=== PATIENT | female | born 1950 | race Caucasian/White ===

== ENCOUNTER 2018-03-04 02:40 | Inpatient (IN) | payer MEDICARE ==
[~2018-03-04] VITALS: Ht 149.8 cm; Wt 99.0 kg
--- NOTE | ~2018-03-04 | PR ---
[place], [place] PROGRESS NOTE NAME: LALO FRANKLIN UNIT #: [id number] ROOM: 315 DOCTOR: IZAIAH SEO MD BIRTHDATE: [birth year] DOS: 03/09/2018 CHIEF COMPLAINT: "Do you think I will be able to go home tomorrow." SUMMARY OF THE VISIT: The patient was interviewed in her room. She was resting quietly in bed. She reported to me that she slept well, got up, had breakfast, ate most if not all of it and then was lying down just to get ready to start today. Nurses report, she was less somatic yesterday and seemed to engage more readily in normal activities and seemed to be brighter and more interactive. They also note that she did not seem to exhibit any medication side effects, so these seemed to have dissipated completely. MENTAL STATUS: She is alert and oriented. Mood does seem to be strongly trending towards euthymia. Affect is more appropriate. There is no linda or hypomania. There are no overt auditory or visual hallucinations. No delusions, no paranoia. Short term memory has mild gaps, otherwise she is intact. PLAN: I will go ahead and prepare her for discharge to [facility]. Her prescriptions have already been e-scribed to [facility]. We will get ready for transport to [place] then on Saturday. IZAIAH SEO MD CM:PNTRANS 1 7 IZAIAH SEO MD 03/09/18916 interface
--- NOTE | ~2018-03-04 | WRIGHTHP ---
[place], [place] PATIENT HISTORY AND PHYSICAL EXAM NAME: LALO FRANKLIN UNIT #: [id number] ROOM: 315 DOCTOR: IZAIAH SEO MD BIRTHDATE: [birth year] DOS: 03/04/2018 CHIEF COMPLAINT: "I have just been depressed." HISTORY OF PRESENT ILLNESS: This is a 67-year-old white female who resides at the [facility]. The patient apparently has been voicing significant suicidal thoughts with a plan. The patient had only been residing at the [facility] for approximately 1 month and has found herself not sleeping well at night, not eating well, not attending to her ADLs. She was seen by the facility psychologist, who felt that she needed to be watched carefully. Eventually, the [facility] reached out so that the patient could be admitted to the psychiatric unit for further evaluation and for treatment. PAST MEDICAL HISTORY: Remarkable for multiple drug allergies including PENICILLIN, MACROLIDE and SEVERAL OTHERS. The patient herself reports a previous psychiatric admission at [facility]. MENTAL STATUS EXAMINATION: This morning, she is alert and oriented to person, possibly place, but not time. Mood does seem to be very depressed and despondent. She endorses multiple neurovegetative symptoms. There is no symptom suggestive of hypomania or linda. There are no overt auditory or visual hallucinations at this point. Memory has gaps for short term events especially. DIAGNOSIS: Major depression, recurrent, severe. PLAN: I have already started her on Remeron 15 mg at bedtime along with Abilify 15 mg at bedtime. Because she scored a 14 of 30 on her mini mental status exam, I will go ahead and start her on Exelon patch 4.6 mg a day. Routine laboratory examinations have been drawn and I am awaiting the results. Meanwhile, we will continue to engage her in individual and marin milieu activity as we further assess her lethality, and then determine the least restrictive environment for discharge. IZAIAH SEO MD CM:HISPHYS:PATIENT HISTORY AND PHYSICAL EXAMINATION [id number] IZAIAH SEO MD 03/04/18 1012 interface
--- NOTE | ~2018-03-04 | DS ---
[place], [place] DISCHARGE SUMMARY NAME: LALO FRANKLIN UNIT #: [id number] ROOM: 315 DOCTOR: IZAIAH SEO MD BIRTHDATE: [birth year] DOS: 03/10/2018 CHIEF COMPLAINT: "I have been so depressed." HISTORY OF PRESENT ILLNESS: This is a 67-year-old white female who resides at the [facility]. Apparently, the patient had begun voicing suicidal thoughts with a plan. The patient had only been residing at the [facility] for approximately 1 month and pretty much during that entire time has found herself with poor sleep with difficulty falling asleep, sleep continuity disturbance, compensator awakening, poor appetite, anergia, anhedonia, hopeless and helpless feelings. She has also been not attending to her ADLs. She was seen by the facility psychologist who felt that she needed to be watched very carefully. Eventually, the staff there felt that the depression and suicidal thoughts were worsening to the point that she no longer was safe there and required more careful intervention and supervision. She was admitted now to the psychiatric unit to rule out further organic matters, to stabilize on medication and engage in individual and marin milieu activities. PAST MEDICAL HISTORY: Remarkable for allergies to PENICILLIN, MACROLIDE and several other medications and she does admit to having a previous psychiatric admission at [facility]. SUMMARY OF HOSPITAL COURSE: The patient was admitted to the unit where she was started on Remeron 15 mg at bedtime and maintained on Abilify 15 mg at bedtime. She did score a 14 of 30 on her mini mental status examination, so she was started on Exelon patch 4.6 mg a day. This was gradually increased to its maximum dose of 13.3 mg daily with excellent results. Towards the latter part of her stay, this was augmented with Namenda 5 mg a day, dose did not have a chance to be increased much beyond that when the patient really had stabilized and it was felt that she could easily return back to the [facility] where I will follow her. Her mood had by that time improved to the point where she was attending to groups, very interactive. She was attending to her ADLs and she was fully cooperative with all aspects of care. MENTAL STATUS AT DISCHARGE: The patient was alert and oriented to person, place, and very approximate on time. Mood was strongly trending towards euthymia. Affect was much more appropriate. There was no linda or hypomania. There were no overt auditory or visual hallucinations. No delusions, no paranoia. Short-term memory was poor. Long-term and intermediate were fine. FINAL DIAGNOSES: Major depression, recurrent, severe, and Alzheimer's dementia. PLAN: The patient's medications have been E-scribed to the institutional pharmacy on record at the [facility]. I will follow her upon her readmission there. Medically and psychiatrically, she is stable. Her biopsychosocial needs will be met adequately by the staff at the [facility]. [place], [place] DISCHARGE SUMMARY NAME: LALO FRANKLIN UNIT #: [id number] ROOM: [facility] DOCTOR: IZAIAH SEO MD BIRTHDATE: [birth year] IZAIAH SEO MD CM:DISCHARG [id number] IZAIAH SEO MD 03/10/18 1048 interface
--- NOTE | ~2018-03-04 | PR ---
[place], [place] PROGRESS NOTE NAME: LALO FRANKLIN UNIT #: [id number] ROOM: 315 DOCTOR: CHERI TRUONG DO BIRTHDATE: [birth year] DOS: 03/06/2018 CHIEF COMPLAINT: "When do I get to go home." SUMMARY OF VISIT: The patient was interviewed in the breakfast maier. She was eating her pudding. She says that she slept well and she is handling her medications well. She does complain of her head spinning when she does lie down. Denies these symptoms when she stands up. Denies any falls. Staff also does not report any falls or activities. We discussed [facility] where she had lived before previously. She stated that she liked it. She continues to deny any plans or thoughts of suicide of hurting herself or others. MENTAL STATUS: She is alert and oriented to person but not the time. Mood does seem to be depressed. There are no symptoms suggestive of hypomania or linda. There are no overt auditory hallucinations. Her memory does have gaps for short-term events. We will continue to increase her Exelon patch to 13.3 mg daily. We will continue her other medications at this time and we will monitor for the potential maximal benefit. We will continue to monitor her and get her individual and group activities and determine the least restrictive environment for her upon discharge when psychiatrically stable. CHERI TRUONG DO IZAIAH SEO MD CM:PNPATRICK [id number] CHERI TRUONG DO 03/06/182231 interface
--- NOTE | ~2018-03-04 | PR ---
[place], [place] PROGRESS NOTE NAME: LALO FRANKLIN UNIT #: [id number] ROOM: 315 DOCTOR: CHERI TRUONG DO BIRTHDATE: [birth year] DOS: 03/05/2018 CHIEF COMPLAINT: '"I feel depressed." SUMMARY OF VISIT: The patient was interviewed in the breakfast maier. She denies suicidal ideations or thoughts of hurting herself. She stated that she receives phone calls from one of her daughters that increases her stress, as the daughter states that she wants to commit suicide. When asked about potentially restricting those phone calls, patient refused and states that she was okay, that her oldest daughter was going to take care of it. She states that she liked it at [facility] [place] and according to the staff, has continually denied plans of hurting herself. MENTAL STATUS: She is alert and oriented to person, possibly place but not time. Mood does seem to be depressed, despondent. There is no symptom suggestive of hypomania or linda. No overt auditory or visual hallucinations at this time. She does have memory gaps for short-term events. PLAN: We will increase the Exelon patch to 1.5 mg daily. Her vitamin D was found to be low at 22.2. Begin vitamin D 50,000 units q. weekly on Saturday. We will continue to monitor the patient and we will engage her in individual and group activities and determine the least restrictive environment for her upon discharge when psychiatrically stable. CHERI TRUONG DO IZAIAH SEO MD CM:TERENCE [phone] CHERI TRUONG DO 03/05/182155 interface
--- NOTE | ~2018-03-04 | PR ---
[place], [place] PROGRESS NOTE NAME: LALO FRANKLIN UNIT #: [id number] ROOM: 315 DOCTOR: IZAIAH SEO MD BIRTHDATE: [birth year] DOS: 03/08/2018 CHIEF COMPLAINT: "I want to go home." SUMMARY OF THE VISIT: The patient was interviewed as she was sitting watching television. She stopped and engaged in conversation. She did report to me that she wants to go home, but could not tell me where home was. There is definitely some cognitive issues here. She does seem to be brighter. Nurses, however, report that she is very somatically fixated and jumps from somatic complaint to somatic complaint. MENTAL STATUS: She is alert and oriented to person, place, but not necessarily time. She could not tell me how long she has been here nor could she remember where she was living prior to this. Mood does seem to be starting to trend towards euthymia and affect is much more appropriate. There is no symptom suggestive of hypomania, linda or psychosis. Short term memory has significant gaps. PLAN: I will now augment the Exelon patch with Namenda 5 mg a day, titrate this upward as needed and as tolerated to maintain her current psychotropics, engage in individual and amrin milieu activity, returning to the least restrictive environment when stable. IZAIAH SEO MD CM:PNTRANS [id number] IZAIAH SEO MD 03/08/18 1134 interface
--- NOTE | ~2018-03-04 | PR ---
[place], [place] PROGRESS NOTE NAME: LALO FRANKLIN UNIT #: [id number] ROOM: 315 DOCTOR: CHERI TRUONG DO BIRTHDATE: [birth year] DOS: 03/07/2018 CHIEF COMPLAINT: "I have a pain in my chest." SUMMARY OF THE VISIT: The patient was interviewed in her bed in her room. She stated that she developed a chest pain last night, stated that the medical team did an EKG and some testing with the blood. She does state that she continues to have the pain. Was told by someone that she should go back to bed and take it easy. She also admitted to shortness of breath, nausea and sweating with the pain. States that she does have heart issues. She does not appear to be in distress at this time. MENTAL STATUS: She is alert and oriented to person but not time. Mood is somewhat depressed. There are no symptoms suggestive to hypomania or linda. There are no overt auditory hallucinations. Memory does have some gaps in her short term memory. PLAN: We will continue the current regimen and medications. We will continue to monitor her with the medical team and continue to engage her in individual and group activities and then determine the least restrictive environment upon her discharge when psychiatrically stable. CHERI TRUONG DO IZAIAH SEO MD CM:PNTRANS [id number] CHERI TRUONG DO 03/07/18 1131 interface
[~2018-03-04 02:40] MED LIST: ABILIFY15 MG PO; ALBUTEROL2.5 MG/0.5 INH; BREO ELLIPTA 11 EACH INH; COUMADIN3 M1 PO; Coumadin3 MG PO; LASIX40 MG PO; LEXAPRO10 MG PO; LOPRESSOR25 MG PO; MAALOX MAXIMUM355 ML PO; PRAVACHOL40 MG PO; PROTONIX40 MG PO; TYLENOL EXTRA500 MG PO
[2018-03-04 06:43] VITALS: BP 137/50
[2018-03-04 09:01] VITALS: BP 137/50
[2018-03-04 09:03] VITALS: BP 137/50
[2018-03-04 12:33] LABS: BASO % 0.7 % (0.0-1.0); EOS # 0.2 10*3/uL (0.0-0.4); EOS % 2.6 % (1.0-4.0); HEMATOCRIT 38.5 % (37.0-47.0); HEMOGLOBIN 12.4 g/dl (12.0-16.0); LYMPH # 1.8 10*3/uL (1.3-4.4); LYMPH % 30.9 % (27.0-41.0); MEAN CELL VOLUME 87.9 fl (81.0-99.0); MEAN CORPUSCULAR HGB 28.3 pg (27.0-31.0); MEAN CORPUSCULAR HGB CONC 32.2 g/dl (33.0-37.0); MEAN PLATELET VOLUME 9.9 fl (9.6-12.3); MONO # 0.8 10*3/uL (0.1-1.0); MONO % 13.7 % (3.0-9.0); NEUT # 3.1 10*3/uL (2.3-7.9); NEUT % 51.9 % (47.0-73.0); PLATELET COUNT AUTOMATED 275 10*3/uL (130-400); RED BLOOD COUNT 4.38 10*6/uL (4.10-5.10); RED CELL DISTRI WIDTH 14.9 % (0-14.5); WHITE BLOOD COUNT 5.9 10*3/uL (4.8-10.8)
[2018-03-04 12:41] LABS: INTERNATIONAL NORM RATIO 2.8 (2.0-3.5)
[2018-03-04 12:48] LABS: ALBUMIN 3.2 gm/dl (3.1-4.5); ALKALINE PHOSPHATASE 67 U/L (45-117); BUN 14 mg/dl (7-24); CHLORIDE 105 mmol/L (98-107); CHOLESTEROL 187 mg/dL (<200); CREATININE 0.72 mg/dL (0.55-1.02); HDL CHOLESTEROL 74 mg/dl (40-60); LDL CHOLESTEROL 67 mg/dL (9-159); POTASSIUM 3.5 mmol/L (3.5-5.1); SGOT/AST 11 IU/L (3-35); SGPT/ALT 13 U/L (12-78); SODIUM 142 mmol/L (136-145); TOTAL PROTEIN 7.3 gm/dL (6.4-8.2); TRIGLYCERIDES 232 mg/dl (<150); VLDL CHOLESTEROL 46 mg/dL (6-40)
[2018-03-04 12:56] LABS: THYROID STIM HORMONE (HS) 0.957 uIU/ml (0.358-4.75)
[2018-03-04 13:40] LABS: VITAMIN D, 25-HYDROXY 22.2 ng/mL (30-100)
[2018-03-04 20:00] VITALS: BP 140/54
[2018-03-05 08:13] VITALS: BP 138/72
[2018-03-05 08:39] VITALS: BP 138/72
[2018-03-05 09:40] LABS: INTERNATIONAL NORM RATIO 3.1 (2.0-3.5)
[2018-03-05 20:00] VITALS: BP 156/60
[2018-03-06 07:39] LABS: INTERNATIONAL NORM RATIO 2.5 (2.0-3.5)
[2018-03-06 09:00] VITALS: BP 154/67
[2018-03-06 21:08] VITALS: BP 140/68
[2018-03-07 07:33] VITALS: BP 136/64
[2018-03-07 09:16] LABS: INTERNATIONAL NORM RATIO 1.8 (2.0-3.5)
[2018-03-07 09:24] VITALS: BP 118/64
[2018-03-07 13:31] VITALS: BP 118/64
[2018-03-07 13:50] VITALS: BP 118/76
[2018-03-07 18:00] LABS: BILIRUBIN NEGATIVE (NEGATIVE); BLOOD TRACE-INTACT (NEGATIVE); CLARITY SL CLOUDY (CLEAR); COLOR YELLOW (YELLOW); GLUCOSE NEGATIVE (NEGATIVE); KETONE NEGATIVE (NEGATIVE); LEUKO ESTERASE TRACE (NEGATIVE); NITRITE NEGATIVE (NEGATIVE); UROBILINOGEN 0.2 E.U./dl (0.2-1.0)
[2018-03-07 18:09] LABS: BACTERIA 2+; EPITHELIAL CELLS 0-2; MUCOUS TRACE; RBC 0-2 rbc/hpf (0-2)
[2018-03-07 20:26] VITALS: BP 135/55
[2018-03-08 07:26] VITALS: BP 130/55
[2018-03-08 07:53] LABS: INTERNATIONAL NORM RATIO 1.5 (2.0-3.5)
[2018-03-08 19:37] VITALS: BP 141/65
[2018-03-09 07:28] VITALS: BP 149/58
[2018-03-09] MEDS ORDERED: MIRTAZAPINE15 M2 PO (08:59)
[2018-03-09] MEDS ORDERED: ARIPIPRAZOLE15 MG PO (08:59)
[2018-03-09] MEDS ORDERED: EXELON13.3 MG/21 T (08:59)
[2018-03-09] MEDS ORDERED: NAMENDA-5 PO (08:59)
[2018-03-09 09:41] LABS: INTERNATIONAL NORM RATIO 1.6 (2.0-3.5)
[2018-03-09 19:47] VITALS: BP 146/54
[2018-03-10 07:59] VITALS: BP 142/65
[2018-03-10] MEDS ORDERED: Vitamin D PO (09:06)
== END 2018-03-10 16:25 | DRG 885 ==
LOC: ED 02:40 → 3N 05:57
PROVIDERS: Internal Medicine; Psychiatry & Neurology Psychiatry
DX: F33.2 Major depressive disorder, recurrent severe without psychotic features (principal); D68.9 Coagulation defect, unspecified; I48.0 Paroxysmal atrial fibrillation; R45.851 Suicidal ideations; G30.9 Alzheimer's disease, unspecified; F20.9 Schizophrenia, unspecified; E78.00 Pure hypercholesterolemia, unspecified; I25.10 Atherosclerotic heart disease of native coronary artery without angina pectoris; T45.515A Adverse effect of anticoagulants, initial encounter; M15.9 Polyosteoarthritis, unspecified; R00.1 Bradycardia, unspecified; F02.80 Dementia in other diseases classified elsewhere, unspecified severity, without behavioral disturbance, psychotic disturbance, mood disturbance, and anxiety; Z88.0 Allergy status to penicillin; Y92.89 Other specified places as the place of occurrence of the external cause; Z88.8 Allergy status to other drugs, medicaments and biological substances; Z88.6 Allergy status to analgesic agent; Z88.1 Allergy status to other antibiotic agents; Z91.040 Latex allergy status; Z91.013 Allergy to seafood

== ENCOUNTER 2018-09-05 21:46 | Inpatient (IN) | payer MEDICARE ==
--- NOTE | ~2018-09-05 | EKG ---
[place], [place] ELECTROCARDIOGRAM REPORT NAME: LALO FRANKLIN UNIT #: [id number] ROOM: 408 DOCTOR: EPIPHANY DRAFT REPORT BIRTHDATE: [birth year] [facility] Test Date: 2018-09-05 Test Time: 22:00:24 Pat Name: LALO FRANKLIN Department: ER Room: 408 Gender: F Taxi Cab Driver: EKG.NH : 1950 Requested By: JOSE ALFREDO SCHWARTZ Order Number: [id number] Reading MD: Lety Cunha MD Measurements Intervals [place] Rate: 55 P: 49 VT: 186 QRS: 28 QRSD: 109 T: -14 QT: 454 QTc: 435 Interpretive Statements Sinus rhythm Atrial premature complex Borderline repol abnormality, diffuse leads Electronically Signed On 09-07-2018 9:15:52 PDT by Lety Cunha MD CM:EKGRPT:ELECTROCARDIOGRAM REPORT 99 0915 JOSE ALFREDO SCHWARTZ MD EPIPHANY DRAFT REPORT JOSE ALFREDO SCHWARTZ MD
--- NOTE | ~2018-09-05 | EKG ---
[place], [place] ELECTROCARDIOGRAM REPORT NAME: LALO FRANKLIN UNIT #: [id number] ROOM: 408 DOCTOR: KHRISANY DRAFT REPORT BIRTHDATE: [birth year] [facility] Test Date: 2018-09-06 Test Time: 03:37:38 Pat Name: LALO FRANKLIN Department: 4E Room: 408 Gender: F Regulatory Administrator: Josh Sotelo : 1950 Requested By: JOSE ALFREDO SCHWARTZ Order Number: [id number] Reading MD: Lety Cunha MD Measurements Intervals [place] Rate: 65 P: 14 MN: 196 QRS: 25 QRSD: 100 T: 22 QT: 485 QTc: 505 Interpretive Statements Sinus rhythm Supraventricular bigeminy Probable inferior infarct, old Baseline wander in lead(s) I,III,aVL,V2,V3 Electronically Signed On 09-07-2018 9:16:11 PDT by Lety Cunha MD CM:EKGRPT:ELECTROCARDIOGRAM REPORT 0337 0916 JOSE ALFREDO SCHWARTZ MD EPIPHANY DRAFT REPORT JOSE ALFREDO SCHWARTZ MD
--- NOTE | ~2018-09-05 | PR ---
[place], [place] PROGRESS NOTE NAME: LALO FRANKLIN UNIT #: [id number] ROOM: 408 DOCTOR: KANE CARVER MD BIRTHDATE: [birth year] DOS: 09/08/2018 SUBJECTIVE: The patient was seen at the cardiology Department prior to her pharmacologic stress test today. She is a 68-year-old woman who presented from the halfway with a 3-day history of chest pain. She states that the pain does get worse when she moves or takes a deep breath. She does have paroxysmal atrial fibrillation and is on chronic warfarin anticoagulation for stroke prophylaxis. Her INRs have been therapeutic throughout her evaluation in this visit. In the hospital, serial troponin levels have been unremarkable. We are proceeding with a pharmacologic stress test today in order to help determine if she has a cardiac cause for her chest pains. PHYSICAL EXAMINATION: VITAL SIGNS: Her pulse is 66 and regular with premature beats. Blood pressure is 128/64. She is afebrile. NECK: Supple. She has no jugular distention. Carotids are full. LUNGS: Respirations are unlabored. Her chest is clear to auscultation and percussion. She has no presacral edema or chest wall tenderness. HEART: Has a regular rhythm with frequent premature beats. She does have some tenderness of her left anterior chest, but this does not reproduce her pains. She has no obvious murmurs. The PMI is not displaced. There is no precordial heave, lift or thrill. ABDOMEN: Soft, did not show any tenderness or masses. EXTREMITIES: Showed no edema. LABORATORY DATA: Hemoglobin is 9.7, white count 5500, platelet count 309,000. Sodium 141, potassium 4.0, BUN 19, creatinine 0.73. IMPRESSIONS: 1. Atypical chest pain. 2. Paroxysmal atrial fibrillation. The patient is on chronic warfarin therapy for stroke prophylaxis. 3. History of IVP DYE ALLERGY. 4. History of dementia. 5. Previous history of heart disease in the past with a previous myocardial infarction. PLAN: We will proceed with a pharmacologic stress test today. Further recommendations depend upon the results of imaging. We thank the hospitalist physicians for asking our advice regarding the patient's assessment. [place], [place] PROGRESS NOTE NAME: LALO FRANKLIN UNIT #: [id number] ROOM: [facility] DOCTOR: KANE CARVER MD BIRTHDATE: [birth year] KANE CARVER MD CM:PNTRANS [phone] KANE CARVER MD 09/09/18 1709 interface
--- NOTE | ~2018-09-05 | EKG ---
[place], [place] ELECTROCARDIOGRAM REPORT NAME: LALO FRANKLIN UNIT #: [id number] ROOM: 408 DOCTOR: RENÉ DRAFT REPORT BIRTHDATE: [birth year] [facility] Test Date: 2018-09-06 Test Time: 00:29:39 Pat Name: LALO FRANKLIN Department: Room: 408 Gender: F Fabric Normalizer: EKG.UT : 1950 Requested By: JOSE ALFREDO SCHWARTZ Order Number: [id number] Reading MD: Lety Cunha MD Measurements Intervals [place] Rate: 54 P: 24 GA: 187 QRS: 23 QRSD: 92 T: -1 QT: 459 QTc: 435 Interpretive Statements Sinus rhythm Borderline ST depression, diffuse leads Electronically Signed On 09-07-2018 9:16:07 PDT by Lety Cunha MD CM:EKGRPT:ELECTROCARDIOGRAM REPORT 0029 0916 JOSE ALFREDO SCHWARTZ MD EPIPHANY DRAFT REPORT JOSE ALFREDO SCHWARTZ MD
--- NOTE | ~2018-09-05 | CON ---
[place], [place] REPORT OF CONSULTATION NAME: LALO FRANKLIN UNIT #: [id number] ROOM: 408 DOCTOR: PHD HEATHER KOSTAS BIRTHDATE: [birth year] DOS: 09/08/2018 HISTORY OF PRESENT ILLNESS: The patient is a 68-year-old female referred by the hospitalist with concerns for depression. At the present time, the patient is on the 4th floor at [facility]. The patient is a resident at the [facility]. She has been 5 times and is . 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 She denied alcohol, tobacco and illegal drug use. PAST MEDICAL HISTORY: Anxiety, atherosclerotic heart disease, bradycardia, congestive heart failure, dementia, hypertension, depression, GERD, hyperlipidemia, osteoarthritis, paroxysmal atrial fibrillation, schizophrenia, vitamin D deficiency. MEDICATIONS: Vitamin D, Nitro-Bid, Coumadin, Protonix, Lasix, Claritin, Lipitor, Lopressor, Micro-K, Trintellix, Exelon, Namenda, Pulmicort Respules, Ventolin, Zofran, Vraylar, Geodon, nystatin, Ativan. PHYSICAL EXAMINATION: GENERAL: The patient was lying comfortably in bed, in no apparent distress. NEUROLOGIC: She was awake, alert and oriented to person, place and time. Eye contact and social skills were appropriate. She was cooperative with the evaluation. PSYCHIATRIC: Affect was blunted and mood was depressed. She endorsed poor appetite and increased thoughts of and suicidal ideation without plan or intent. Protective factors included restoration beliefs, which she appeared to be fixated on during this interview. She was very [facility]. She received inpatient mental health treatment [facility] the [facility] for suicidality in March of this year, she would like to return to the [facility] to address her depression. She reports close relationship with her family and one of her daughters is her power of admitted attorneys. Speech was slow. Receptive and expressive language appeared within normal limits on a conversational basis. She appeared to have some difficulty recalling recent and remote events. Thought process was goal directed. Thought content was fixated on past actions which led her to fear that she will not go to [facility]. Insight and judgment appeared fair. DIAGNOSES: Major depressive disorder, recurrent, severe; unspecified neurocognitive disorder. PLAN: Discussed this case with Dr. Molina. The patient would be appropriate for the [facility] once she is medically clear. 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 Thank you very much for this consultation. [place], [place] REPORT OF CONSULTATION NAME: LALO FRANKLIN UNIT #: [id number] ROOM: 408 DOCTOR: HEATHER, PHD KOSTAS BIRTHDATE: [birth year] Miranda Bonner, PhD CM:CONSTR:REPORT OF CONSULTATION 1533 09/09/18 0357 interface
--- NOTE | ~2018-09-05 | EKG ---
[place], [place] ELECTROCARDIOGRAM REPORT NAME: LALO FRANKLIN UNIT #: [id number] ROOM: 408 DOCTOR: RENÉ DRAFT REPORT BIRTHDATE: [birth year] [facility] Test Date: 2018-09-06 Test Time: 18:32:49 Pat Name: LALO FRANKLIN Department: Room: 408 2 Gender: F Textile Machinery Instructor: Mita Fajardo : 1950 Requested By: DELMI VILLEDA Order Number: [id number] Reading MD: Lety Cunha MD Measurements Intervals [place] Rate: 60 P: 14 DE: 175 QRS: 22 QRSD: 93 T: -30 QT: 421 QTc: 421 Interpretive Statements Sinus rhythm Atrial premature complexes Borderline repolarization abnormality Baseline wander in lead(s) V1 Electronically Signed On 09-07-2018 9:17:23 PDT by Lety Cunha MD CM:EKGRPT:ELECTROCARDIOGRAM REPORT 1832 0917 DELMI BARTON DRAFT REPORT DELMI VILLEDA DO
[~2018-09-05 21:46] MED LIST changes: +ARIPIPRAZOLE15 MG PO; +BIOFREEZE118 ML T; +CLARITIN10 MG PO; +COUMADIN2.5 M1 PO; +DOXYCYCLINE100 M3 PO; +EXELON13.3 MG/21 T; +MIRTAZAPINE15 M2 PO; +NAMENDA-5 PO; +POTASSIUM CHLO10 ME4 PO; +VENTOLIN 02.5 MG/3 M INH; +Vitamin D PO
[2018-09-05 21:57] VITALS: BP 138/52
[2018-09-05 22:20] LABS: BASO # 0.1 10*3/uL (0.0-0.1); BASO % 0.9 % (0.0-1.0); EOS # 0.1 10*3/uL (0.0-0.4); EOS % 1.6 % (1.0-4.0); HEMATOCRIT 38.7 % (37.0-47.0); HEMOGLOBIN 11.6 g/dl (12.0-16.0); LYMPH # 2.6 10*3/uL (1.3-4.4); LYMPH % 37.8 % (27.0-41.0); MEAN CELL VOLUME 83.6 fl (81.0-99.0); MEAN CORPUSCULAR HGB 25.1 pg (27.0-31.0); MEAN PLATELET VOLUME 9.7 fl (9.6-12.3); MONO # 0.7 10*3/uL (0.1-1.0); MONO % 9.9 % (3.0-9.0); NEUT # 3.5 10*3/uL (2.3-7.9); NEUT % 49.7 % (47.0-73.0); PLATELET COUNT AUTOMATED 367 10*3/uL (130-400); RED BLOOD COUNT 4.63 10*6/uL (4.10-5.10); RED CELL DISTRI WIDTH 16.7 % (0-14.5)
[2018-09-05 22:30] LABS: ACT PARTIAL THROMBO TIME 31.3 SECONDS (20.8-31.5); INTERNATIONAL NORM RATIO 2.2 (2.0-3.5)
[2018-09-05 22:37] LABS: ALBUMIN 3.4 gm/dl (3.1-4.5); ALKALINE PHOSPHATASE 70 U/L (45-117); BUN 19 mg/dl (7-24); CHLORIDE 106 mmol/L (98-107); CREATININE 0.88 mg/dL (0.55-1.02); POTASSIUM 3.9 mmol/L (3.5-5.1); SGOT/AST 9 IU/L (3-35); SGPT/ALT 20 U/L (12-78); SODIUM 143 mmol/L (136-145); TOTAL PROTEIN 7.6 gm/dL (6.4-8.2)
[2018-09-05 22:39] LABS: TROPONIN I < 0.015 ng/ml (<0.045)
[2018-09-06 00:35] VITALS: BP 137/52
[2018-09-06 00:55] VITALS: BP 137/52
[2018-09-06 04:12] LABS: BASO # 0.1 10*3/uL (0.0-0.1); EOS # 0.1 10*3/uL (0.0-0.4); EOS % 2.1 % (1.0-4.0); HEMATOCRIT 33.5 % (37.0-47.0); HEMOGLOBIN 10.1 g/dl (12.0-16.0); LYMPH # 1.8 10*3/uL (1.3-4.4); LYMPH % 27.9 % (27.0-41.0); MEAN CELL VOLUME 82.9 fl (81.0-99.0); MEAN CORPUSCULAR HGB CONC 30.1 g/dl (33.0-37.0); MEAN PLATELET VOLUME 9.8 fl (9.6-12.3); MONO # 0.8 10*3/uL (0.1-1.0); MONO % 12.5 % (3.0-9.0); NEUT # 3.6 10*3/uL (2.3-7.9); NEUT % 56.3 % (47.0-73.0); PLATELET COUNT AUTOMATED 332 10*3/uL (130-400); RED BLOOD COUNT 4.04 10*6/uL (4.10-5.10); RED CELL DISTRI WIDTH 16.7 % (0-14.5); WHITE BLOOD COUNT 6.3 10*3/uL (4.8-10.8)
[2018-09-06 04:23] LABS: ACT PARTIAL THROMBO TIME 31.4 SECONDS (20.8-31.5); INTERNATIONAL NORM RATIO 2.4 (2.0-3.5)
[2018-09-06 04:26] LABS: BUN 19 mg/dl (7-24); CHLORIDE 108 mmol/L (98-107); POTASSIUM 3.2 mmol/L (3.5-5.1); SODIUM 145 mmol/L (136-145)
[2018-09-06 04:29] LABS: CHOLESTEROL 137 mg/dL (<200); HDL CHOLESTEROL 73 mg/dl (40-60); LDL CHOLESTEROL 49 mg/dL (9-159); PHOSPHOROUS 3.5 mg/dL (2.5-4.9); TRIGLYCERIDES 77 mg/dl (<150); VLDL CHOLESTEROL 15 mg/dL (6-40)
[2018-09-06 04:38] LABS: FREE T4 1.18 ng/dl (0.76-1.46); THYROID STIM HORMONE (HS) 0.827 uIU/ml (0.358-4.75)
[2018-09-06 07:09] LABS: VITAMIN D, 25-HYDROXY 48.2 ng/mL (30-100)
[2018-09-06 08:14] VITALS: BP 140/76
[2018-09-06 09:13] LABS: BILIRUBIN NEGATIVE (NEGATIVE); BLOOD NEGATIVE (NEGATIVE); CLARITY CLEAR (CLEAR); COLOR YELLOW (YELLOW); GLUCOSE NEGATIVE (NEGATIVE); KETONE NEGATIVE (NEGATIVE); LEUKO ESTERASE NEGATIVE (NEGATIVE); NITRITE NEGATIVE (NEGATIVE); PH 5.5 (5.0-9.0); SPECIFIC GRAVITY >= 1.030 (1.005-1.030); UROBILINOGEN 0.2 E.U./dl (0.2-1.0)
[2018-09-06 09:27] LABS: EPITHELIAL CELLS 0-2; MUCOUS 1+; WBC 0-2 wbc/hpf (0-5)
[2018-09-06 16:00] VITALS: BP 121/51
[2018-09-06 18:20] VITALS: BP 122/52
[2018-09-06 20:16] LABS: CPK 34 U/L (26-192)
[2018-09-06 20:19] LABS: TROPONIN I < 0.015 ng/ml (<0.045)
[2018-09-07] VITALS: BP 100/48
[2018-09-07 00:09] VITALS: BP 108/56
[2018-09-07 00:34] LABS: CPK 29 U/L (26-192); TROPONIN I < 0.015 ng/ml (<0.045)
[2018-09-07 06:09] LABS: CPK 24 U/L (26-192); TROPONIN I < 0.015 ng/ml (<0.045)
[2018-09-07 06:17] LABS: BASO # 0.1 10*3/uL (0.0-0.1); BASO % 1.3 % (0.0-1.0); EOS # 0.1 10*3/uL (0.0-0.4); EOS % 2.6 % (1.0-4.0); HEMATOCRIT 31.9 % (37.0-47.0); HEMOGLOBIN 9.6 g/dl (12.0-16.0); LYMPH # 2.3 10*3/uL (1.3-4.4); LYMPH % 41.4 % (27.0-41.0); MEAN CELL VOLUME 82.6 fl (81.0-99.0); MEAN CORPUSCULAR HGB 24.9 pg (27.0-31.0); MEAN CORPUSCULAR HGB CONC 30.1 g/dl (33.0-37.0); MEAN PLATELET VOLUME 10.2 fl (9.6-12.3); MONO # 0.6 10*3/uL (0.1-1.0); MONO % 10.7 % (3.0-9.0); NEUT # 2.4 10*3/uL (2.3-7.9); NEUT % 43.8 % (47.0-73.0); PLATELET COUNT AUTOMATED 325 10*3/uL (130-400); RED BLOOD COUNT 3.86 10*6/uL (4.10-5.10); RED CELL DISTRI WIDTH 16.8 % (0-14.5); WHITE BLOOD COUNT 5.4 10*3/uL (4.8-10.8)
[2018-09-07 06:23] LABS: BUN 27 mg/dl (7-24); CHLORIDE 107 mmol/L (98-107); CREATININE 0.84 mg/dL (0.55-1.02); POTASSIUM 4.1 mmol/L (3.5-5.1); SODIUM 144 mmol/L (136-145)
[2018-09-07 06:29] LABS: INTERNATIONAL NORM RATIO 2.8 (2.0-3.5)
[2018-09-07 08:00] VITALS: BP 114/58
[2018-09-07 12:00] VITALS: BP 115/50
[2018-09-07 12:31] LABS: CPK 26 U/L (26-192)
[2018-09-07 12:36] LABS: TROPONIN I < 0.015 ng/ml (<0.045)
[2018-09-07 16:00] VITALS: BP 122/46
[2018-09-07 20:00] VITALS: BP 115/53
[2018-09-08] VITALS: BP 112/55
[2018-09-08 07:19] LABS: BASO # 0.1 10*3/uL (0.0-0.1); BASO % 0.9 % (0.0-1.0); EOS # 0.1 10*3/uL (0.0-0.4); EOS % 1.6 % (1.0-4.0); HEMATOCRIT 31.6 % (37.0-47.0); HEMOGLOBIN 9.7 g/dl (12.0-16.0); LYMPH # 1.9 10*3/uL (1.3-4.4); MEAN CELL VOLUME 82.1 fl (81.0-99.0); MEAN CORPUSCULAR HGB 25.2 pg (27.0-31.0); MEAN CORPUSCULAR HGB CONC 30.7 g/dl (33.0-37.0); MEAN PLATELET VOLUME 10.4 fl (9.6-12.3); MONO # 0.6 10*3/uL (0.1-1.0); NEUT # 2.9 10*3/uL (2.3-7.9); NEUT % 52.3 % (47.0-73.0); PLATELET COUNT AUTOMATED 309 10*3/uL (130-400); RED BLOOD COUNT 3.85 10*6/uL (4.10-5.10); RED CELL DISTRI WIDTH 16.4 % (0-14.5); WHITE BLOOD COUNT 5.5 10*3/uL (4.8-10.8)
[2018-09-08 07:32] LABS: BUN 19 mg/dl (7-24); CHLORIDE 106 mmol/L (98-107); CREATININE 0.73 mg/dL (0.55-1.02); SODIUM 141 mmol/L (136-145)
[2018-09-08 08:00] VITALS: BP 128/64
[2018-09-08 09:40] LABS: INTERNATIONAL NORM RATIO 2.8 (2.0-3.5)
[2018-09-08 13:20] VITALS: BP 152/58
[2018-09-08 16:00] VITALS: BP 145/58
[2018-09-08] MEDS ORDERED: VRAYLAR1.5 MG PO (17:08)
[2018-09-08] MEDS ORDERED: NYSTOP60 GM T (17:08)
[2018-09-08] MEDS ORDERED: BRIN10TA PO (17:08)
[2018-09-08 20:00] VITALS: BP 119/46
[2018-09-08] MEDS ORDERED: NAMENDA10 MG PO (21:41)
== END 2018-09-08 21:16 | disposition home health service (06) | DRG 885 ==
LOC: EDSTATUS 21:46 → ED 21:47 → EDHOLD 23:15 → 4E 23:15
PROVIDERS: Emergency Medicine Emergency Medical Services; Internal Medicine; Internal Medicine Cardiovascular Disease
DX: F33.2 Major depressive disorder, recurrent severe without psychotic features (principal); N39.0 Urinary tract infection, site not specified; D68.59 Other primary thrombophilia; I48.0 Paroxysmal atrial fibrillation; I25.10 Atherosclerotic heart disease of native coronary artery without angina pectoris; E66.9 Obesity, unspecified; E78.00 Pure hypercholesterolemia, unspecified; M13.0 Polyarthritis, unspecified; E78.5 Hyperlipidemia, unspecified; I11.0 Hypertensive heart disease with heart failure; I50.9 Heart failure, unspecified; F41.9 Anxiety disorder, unspecified; K21.9 Gastro-esophageal reflux disease without esophagitis; K59.09 Other constipation; E55.9 Vitamin D deficiency, unspecified; R00.1 Bradycardia, unspecified; E83.41 Hypermagnesemia; G30.9 Alzheimer's disease, unspecified; F02.80 Dementia in other diseases classified elsewhere, unspecified severity, without behavioral disturbance, psychotic disturbance, mood disturbance, and anxiety; B36.9 Superficial mycosis, unspecified; F20.9 Schizophrenia, unspecified; M94.0 Chondrocostal junction syndrome [Tietze]; J45.909 Unspecified asthma, uncomplicated; Z88.6 Allergy status to analgesic agent; Z88.1 Allergy status to other antibiotic agents; Z91.041 Radiographic dye allergy status; Z91.040 Latex allergy status; Z88.5 Allergy status to narcotic agent; Z88.0 Allergy status to penicillin; Z91.013 Allergy to seafood; Z88.2 Allergy status to sulfonamides; Z88.8 Allergy status to other drugs, medicaments and biological substances; Z91.018 Allergy to other foods; Z79.01 Long term (current) use of anticoagulants; Z83.3 Family history of diabetes mellitus; Z80.9 Family history of malignant neoplasm, unspecified; I25.2 Old myocardial infarction; Z91.09 Other allergy status, other than to drugs and biological substances; Z68.36 Body mass index [BMI] 36.0-36.9, adult